=== PATIENT | male | born 1955 | race Caucasian/White ===

== ENCOUNTER 2023-11-22 08:59 | Observation (INO) | payer MEDICARE, SELFPAY ==
[2023-11-22] VITALS (12 sets, daily range): BP systolic 91–154; BP diastolic 52–80; PULSE 61–90; RESP 16–18; TEMP 36.4–37.5; O2SAT 95–100; BMI 28.0; BMI 28.8
[2023-11-22] MEDS: Lactated Ringers 1,000 ML 15 ML IV (08:30)
--- NOTE | 2023-11-22 08:56 | PCM.HP.STD ---
HPI - General General Date of Service: 11/22/23 Chief Complaint: BPH with obstruction HPI Narrative TANYA STILES, is a 68 M who presents for transurethral section of prostate for obstruction PFSH Medical History Alcohol use Anxiety Discoloration of skin DVT (deep venous thrombosis) Loss of consciousness Non-smoker Prostate disease Home Medications tamsulosin 0.4 mg capsule 0.4 mg PO QHS 11/15/23 [History Last Taken Unknown] Allergy/AdvReac Type Severity Reaction Status Date / Time No Known Allergies Allergy Verified 11/22/23 08:00 Surgical History History of cystoscopy History of tonsillectomy Hx of colonoscopy Hx of vasectomy Social History Smoking Status: Never smoker Vital Signs Vital Signs Vital Signs: 11/22/23 08:26 11/22/23 08:26 Temperature 98.5 F Temperature Source Temporal Pulse Rate 67 Respiratory Rate 17 Respiratory Pattern Normal Blood Pressure 122/80 H Blood Pressure Mean 94 Blood Pressure Source Monitor Blood Pressure Position Semi-Fowlers Blood Pressure Location Left Arm Pulse Ox 99 Oxygen Delivery Method Room Air Weight Weight: 74 kg Body Mass Index (BMI) 28.0
--- NOTE | 2023-11-22 09:00 | DCINST_ITS ---
Discharge Instructions Diet Discharge Diet: No restrictions Activity Discharge Activity: Return to Normal Activity and May Not Drive (while taking narcotic pain medications.) Dressing / Incision Call your doctor if you observe: Fever of 101 or Higher Follow Up Care Please Follow Up With: Ziggy Hendricks MD When: Call [phone] for an appointment Test Results: Test results from this visit will be discussed in further detail at your follow- up appointment, if applicable. Discharge Plan Admission Primary Reason for Your Visit: turp Attending Provider: Ziggy Hendricks Primary Care Provider: Joss Pham Discharge Orders/Prescriptions Prescriptions: New ciprofloxacin HCl [Cipro] 500 mg tablet 500 mg PO BID Qty: 14 0RF No Action tamsulosin 0.4 mg capsule 0.4 mg PO QHS Referrals / Follow Up: Ziggy Hendricks MD [Med Staff - Active Staff] - Joss Pham MD [Primary Care Provider] - Disposition Disposition (needs filled in before D/C Order can be placed): Home, Self Care
[2023-11-22] MEDS: Cefazolin 2 GM in 0.9% Normal Saline (100mL Bag) 100 ML IV (09:32)
--- NOTE | 2023-11-22 09:45 | PROS_PTH ---
PATHOLOGY RESULTS PATIENT: TANYA STILES LOC: [facility] U#:[id number] AGE/SX: 68/M ROOM: MD316 RE11/22/[address]: Dr. Ziggy Hendricks MD : [id number] BED: 1 DIS: 11/23/2023 SPEC #: [id number] RECD: 11/22/23 12:39 STATUS: LY SHI #: [id number] JEFFERY: 11/22/23 09:[address]: Ziggy Hendricks DEPT: SURGICAL PATHOLOGY RECD BY: Мария Pineda ENTERED: 11/22/23 12:40 SP TYPE: TURP OTHR DR: Dr. Joss Pham MD Tissues: Prostate, NOS Procedures: Surgery Specimen Level IV HEADER OPERATION: Transurethral resection of prostate with Olympus PRE-OP DIAGNOSIS: BPH with obstruction TISSUE SUBMITTED: Prostate tissue MICROSCOPIC DIAGNOSIS Prostate tissue, transurethral resection: Benign prostatic hyperplasia, glandular and stromal type. Focal chronic inflammation. SJ:kinga 11/23/2023 MICROSCOPIC DESCRIPTION Slides are reviewed. GROSS DESCRIPTION Received is one container labeled with the patient's name and designated prostate tissue. The specimen consists of multiple irregular fragments of pink-de leon, rubbery, soft tissue that in aggregate weigh 15.4 gm and measure in aggregate 6.0 x 6.0 x 2.5 cm. A few fragments of blood clots are also noted. Oral Therapist tissue is submitted in ten cassettes. / JASON:kinga 11/22/2023 TC:5 CPT: 89420
--- NOTE | 2023-11-22 11:14 | PCM.OPRPT ---
Report of Operation Date of Procedure: 11/22/23 Pre-Operative Diagnosis: BPH with obstruction Post-Operative Diagnosis: The same Surgery/Procedure Performed:: Transurethral section of prostate, and removal of foreign object in the prostate and bladder, UroLift clips Description of Surgical Findings:: 68-year-old male with a very large prostate he did have a UroLift procedure in the past which did not work at all for him, has been on medical therapy for quite some time and still has significant urinary problems and voiding dysfunction so on he was found to have a very large obstructive prostate so we will proceed with a transurethral resection of the prostate. Patient taken back to the operative room at a smooth induction of general anesthesia he was placed in dorsolithotomy position penis and testicles were prepped and draped in usual sterile fashion went into the bladder with a 26 [place] continuous-flow resectoscope identified the verumontanum identified the obstructing median lobe and lateral lobes I then resected the median lobe resected back to the verumontanum I then switched over to a 24 [place] noncontinuous flow resectoscope continue resecting the prostate I then got up to the apical area of the prostate or the roof of the prostate and encountered several UroLift clips on both sides one of the clips that brought through one of the loops then had to use the button to remove the clips once these clips were removed then a switch back to a new loop and continued resecting and then I resected a nice wide open channel all the specimen was removed from the prostate and the bladder I then placed a catheter into the bladder we did obtain hemostasis prior to this and put on continuous bladder irrigation and the urine was fairly clear with irrigation the patient anesthetic was reversed and taken back to the PACU in good condition resection time was quite long to take about an hour and 20 minutes to resect the prostate was very large we did remove UroLift clips mostly from the anterior part of the prostate. Surgeon: Ziggy Hendricks Type of Anesthesia: General Drains: 22fr [address] way Admit VTE Documentation VTE Present on Admission: No VTE Mechan Device Prophylaxis: SCD's VTE Pharm Prophylaxis ordered?: No
[2023-11-22] MEDS: Ketorolac 15 MG/ML Vial IV ×2 (13:07→17:51)
[2023-11-22] MEDS: 0.9% Normal Saline (1000mL) 1,000 ML 125 ML IV ×2 (13:07→22:09)
[2023-11-22] MEDS: 0.9% Saline Lock 10 ML Syringe IV ×2 (13:08→17:51)
[2023-11-22] MEDS: Ciprofloxacin 400 MG/200 ML BAG 200 MG IV (17:28)
[2023-11-22] MEDS: Docusate Sodium 100 MG Capsule 200 MG PO (21:19)
[2023-11-22] MEDS: Tamsulosin HCl 0.4 MG Capsule 0.400000000000000022 MG PO (21:19)
[2023-11-23 00:17] VITALS: BP 108/58; PULSE 78; RESP 18; TEMP 36.7; O2SAT 98
[2023-11-23] MEDS: Ketorolac 15 MG/ML Vial IV ×3 (00:19→11:40)
[2023-11-23] MEDS: 0.9% Saline Lock 10 ML Syringe IV ×3 (00:20→11:40)
[2023-11-23 05:07] VITALS: BP 103/59; PULSE 74; RESP 16; TEMP 36.4; O2SAT 98
[2023-11-23] MEDS: Ciprofloxacin 400 MG/200 ML BAG 200 MG IV (05:11)
[2023-11-23] MEDS: 0.9% Normal Saline (1000mL) 1,000 ML 125 ML IV (06:41)
[2023-11-23 08:32] VITALS: BP 118/65; PULSE 79; RESP 16; TEMP 36.9; O2SAT 98
[2023-11-23] MEDS: Docusate Sodium 100 MG Capsule 200 MG PO (09:36)
--- NOTE | 2023-11-23 09:46 | CASEMGMT ---
Pt states feeling safe going home today and denies additional needs.
--- NOTE | 2023-11-23 12:14 | PHA.DC_ITS ---
Pharmacy [facility] Service has performed discharge medication reconciliation and counseling for this patient. 1. CIPROFLOXACIN 500MG PO BID X 7 DAYS The patient's discharge medication list was reviewed for discrepancies and discrepancies were resolved. The patient was counseled on the following discharge medications and changes in medications for homegoing were reviewed. The Reason for Use, instructions for use, and potential side effects were reviewed for all new medications. The patient's questions regarding all of their medications were answered. The patient was able to verbally demonstrate an understanding of their discharge medications. Medications at Discharge Home Medications tamsulosin 0.4 mg capsule 0.4 mg PO QHS 11/15/23 ciprofloxacin HCl 500 mg tablet (Cipro) 500 mg PO BID #14 tabs 11/22/23
[2023-11-23 13:10] VITALS: BP 143/76; PULSE 87; RESP 16; TEMP 37; O2SAT 100
== END 2023-11-23 13:15 | disposition home or self-care (01) ==
LOC: SDC 12:36 → MS3 12:36
PROVIDERS: Admitting Provider Urology; PCP Family Medicine; Referring Provider Urology; Visit Provider Urology
PROC: 0VT08ZZ Resection of Prostate, Via Natural or Artificial Opening Endoscopic (ICD-10-PCS; CPT 52601; principal; 2023-11-22 09:35)
DX: N40.1 Benign prostatic hyperplasia with lower urinary tract symptoms (principal); N13.8 Other obstructive and reflux uropathy; Z46.6 Encounter for fitting and adjustment of urinary device; Z86.718 Personal history of other venous thrombosis and embolism
CPT/HCPCS: 52601; 00914; 88305; 93005; 96361; 96365; 96366; 96375; 96376; 99221; J7030; J7120; A4216; G0378; J0744; J2405

== ENCOUNTER → 2024-04-08 | Outpatient (CLI) | payer MEDICARE, SELFPAY ==
[2024-04-08 13:07] LABS: PSA,Total- Diagnostic 1.08 ng/mL (0.0-4.0)
== END | disposition home or self-care (01) ==
PROVIDERS: PCP Family Medicine; Referring Provider Nurse Practitioner; Visit Provider Nurse Practitioner
DX: R97.20 Elevated prostate specific antigen [PSA] (principal)
CPT/HCPCS: 36415; 84153

== ENCOUNTER → 2025-04-10 | Outpatient (CLI) | payer MEDICARE, SELFPAY ==
[2025-04-10 16:14] LABS: PSA,Total- Diagnostic 1.16 ng/mL (0.00-4.00)
== END | disposition home or self-care (01) ==
LOC: LAB 15:07
PROVIDERS: PCP Family Medicine; Referring Provider Nurse Practitioner; Visit Provider Nurse Practitioner
DX: R97.20 Elevated prostate specific antigen [PSA] (principal)
CPT/HCPCS: 36415; 84153